=== PATIENT | male | born 1985 | race Hispanic/Latino ===

== ENCOUNTER 2017-05-16 01:39 | Emergency (ER) | payer SELFPAY ==
[2017-05-16] MEDS ORDERED: LIDOCAINE HCL 2% JELLY 5 ML ONE (02:13)
[2017-05-16] MEDS ORDERED: HYDROCODONE/ACETAMINOPHEN 7.5/325 MG 15 ML UDCUP ONE (02:14)
[2017-05-16] MEDS ORDERED: TRAMADOL HCL 50 MG TABLET ONE (02:22)
== END 2017-05-16 03:08 | disposition home or self-care (01) ==
LOC: EDH 01:39
DX: K08.89 Other specified disorders of teeth and supporting structures (principal); Z72.0 Tobacco use; Z88.6 Allergy status to analgesic agent

== ENCOUNTER 2017-06-24 13:29 | Emergency (ER) | payer OTHER | END 2017-06-24 15:29 | disposition home or self-care (01) | LOC: EDH 13:29 | DX: J02.0 Streptococcal pharyngitis (principal); Z88.6 Allergy status to analgesic agent; Z72.0 Tobacco use ==

== ENCOUNTER 2018-10-16 22:19 | Emergency (ER) | payer OTHER | END 2018-10-16 23:40 | disposition home or self-care (01) | LOC: EDH 22:19 | DX: S93.432A Sprain of tibiofibular ligament of left ankle, initial encounter (principal); Z88.6 Allergy status to analgesic agent; Z72.0 Tobacco use; X50.1XXA Overexertion from prolonged static or awkward postures, initial encounter; Y93.89 Activity, other specified; Y92.89 Other specified places as the place of occurrence of the external cause; Y99.8 Other external cause status | CPT/HCPCS: 73610 ==